=== PATIENT | male | born 1980 | race Caucasian/White ===

== ENCOUNTER 2018-01-09 14:25 | Emergency (ER) | payer OTHER ==
[~2018-01-09] VITALS: Ht 180.3 cm; Wt 86.0 kg
[2018-01-09 15:09] LABS: BASOPHILS # (AUTO) 0.07 x10^3/uL (0-0.1); BASOPHILS % (AUTO) 1 % (0-1); EOSINOPHILS # (AUTO) 0.08 x10^3/uL (0-0.4); EOSINOPHILS % (AUTO) 1 % (1-7); LYMPHOCYTES # (AUTO) 1.68 x10^3/uL (1-3.4); LYMPHOCYTES % (AUTO) 20 % (22-44); MD NO; MEAN CORPUSCULAR HEMOGLOBIN 30.3 pg (27.5-34.5); MEAN CORPUSCULAR HGB CONC 34.9 g/dL (33.2-36.2); MEAN CORPUSCULAR VOLUME 86.7 fL (81-97); MEAN PLATELET VOLUME 8.2 fL (7.4-10.4); MONOCYTES % (AUTO) 6 % (2-9); NEUTROPHILS # (AUTO) 5.92 x10^3/uL (1.8-6.8); NEUTROPHILS % (AUTO) 72 % (42-75); PLATELET COUNT 180 x10^3/uL (130-400); RED BLOOD COUNT 5.51 x10^6/uL (4.38-5.82); RED CELL DISTRIBUTION WIDTH 12.4 % (9.4-14.8)
[2018-01-09 15:23] LABS: ALANINE AMINOTRANSFERASE 27 U/L (12-78); ALBUMIN 4.1 g/dL (3.4-5.0); ANION GAP 6 mmol/L (5-15); CHLORIDE 106 mmol/L (98-107); CREATININE 1.27 mg/dL (0.7-1.3)
[2018-01-09 15:25] LABS: ALKALINE PHOSPHATASE 79 U/L (45-117); TOTAL PROTEIN 7.7 g/dL (6.4-8.2)
[2018-01-09 15:41] LABS: MICROSCOPIC NOT IND
[2018-01-09 16:04] LABS: CULTURE INDICATED? NO
[2018-01-09] MEDS ORDERED: DIPHENHYDRAMINE 50 MG/ML, 1ML IVPush ONE (17:00)
[2018-01-09] MEDS ORDERED: MAALOX/HYOSCYAMINE/LIDOCAINE 45 ML BTL PO ONE (17:00)
[2018-01-09] MEDS ORDERED: METOCLOPRAMIDE 5 MG/ML, 2ML IVPush ONE (17:00)
[2018-01-09] MEDS ORDERED: SODIUM CHLORIDE 0.9% 1,000ML IVBOLUS ONE (17:00)
[2018-01-09] MEDS ORDERED: SODIUM CHLORIDE FLUSH 10ML SYR IVF ONE (17:00)
[2018-01-09] MEDS ORDERED: KETOROLAC 30 MG/1 ML IVPush ONE (17:00)
[2018-01-09] MEDS ORDERED: DIPHENHYDRAMINE 50 MG/ML, 1ML ONE (17:26)
[2018-01-09] MEDS ORDERED: METOCLOPRAMIDE 5 MG/ML, 2ML ONE (17:26)
[2018-01-09] MEDS ORDERED: KETOROLAC 30 MG/1 ML ONE (17:26)
[2018-01-09] MEDS ORDERED: MAALOX/HYOSCYAMINE/LIDOCAINE 45 ML BTL ONE (17:27)
[2018-01-09] MEDS ORDERED: OMNIPAQUE 350 MG/ML, 100ML BOTTLE ONE (18:05)
[2018-01-09 19:07] VITALS: BP 114/71
== END 2018-01-09 19:09 | disposition home or self-care (01) ==
LOC: ED 18:23
DX: K29.00 Acute gastritis without bleeding (principal)
CPT/HCPCS: 36415; 74177; 76700; 80053; 81003; 83690; 85025; 96361; 96374; 96375; 99285; J1200; J1885; J2765; J7030; Q9967